=== PATIENT | female | born 1950 | race African-American/Black ===

== ENCOUNTER 2023-11-18 13:37 | Emergency (ER) | payer MEDICARE, MEDICAID ==
[~2023-11-18] VITALS: Ht 170.2 cm; Wt 150.0 kg
[2023-11-18 13:42] VITALS: O2SAT 98
[2023-11-18 14:35] LABS: BASOPHILS % 0.8 % (0.0-2.0); EOSINOPHILS % 1.1 % (0.0-5.0); HEMATOCRIT. 42.2 % (36.0-48.0); HEMOGLOBIN. 13.8 g/dL (12.0-16.0); LYMPHOCYTES % 19.8 % (20.0-50.0); MEAN CORPUSCULAR HEMOGLOBIN 29.7 pg (28.0-32.0); MEAN CORPUSCULAR HGB CONC 32.6 g/dL (31.0-37.0); MEAN CORPUSCULAR VOLUME 91.2 fL (81.0-99.0); MONOCYTES % 8.2 % (2.0-8.0); NEUTROPHILS % 70.1 % (40.0-76.0); PLATELET 276 x1000/uL (130-400); RED BLOOD CELL COUNT 4.63 mill/uL (4.2-5.4); RED CELL DISTRIBUTION WIDTH 14.1 % (11.6-14.6); WHITE BLOOD COUNT 10.2 x1000/uL (4.5-11.0)
[2023-11-18 14:41] LABS: CHLORIDE 103 mEq/L (98-107); SODIUM 136 mEq/L (136-145)
[2023-11-18 14:42] LABS: CALCIUM 9.4 mg/dL (8.7-10.4); CARBON DIOXIDE 28 mEq/L (21-32)
[2023-11-18 14:47] LABS: CREATININE 0.7 mg/dL (0.6-1.0); GLUCOSE 153 mg/dL (70-105); UREA NITROGEN BLOOD 11 mg/dL (9-23)
[2023-11-18 14:49] LABS: ALANINE AMINOTRANSFERASE 9 IU/L (10-49); ALBUMIN 4.8 g/dL (3.2-4.8); ASPARTATE AMINOTRANSFERASE 16 IU/L (<34); BILIRUBIN TOTAL 0.4 mg/dL (0.1-1.0); PROTEIN TOTAL 8.4 g/dL (6.0-8.3)
[2023-11-18 16:03] VITALS: TEMP 99.3
[2023-11-18 16:21] VITALS: BP 142/78; PULSE 72; RESP 16
[2023-11-18] MEDS: KETOROLAC 60MG/2ML VIAL IM ONE (16:21)
== END 2023-11-18 16:32 | disposition home or self-care (01) ==
LOC: ER 15:45
DX: M79.89 Other specified soft tissue disorders (principal); G89.29 Other chronic pain; M54.9 Dorsalgia, unspecified; E11.9 Type 2 diabetes mellitus without complications; I10 Essential (primary) hypertension
CPT/HCPCS: 99285; 93971; 80053; 85025; 85379; 36415; 96372; J1885

== ENCOUNTER 2025-05-06 10:31 | Inpatient (IN) | payer MEDICARE, MEDICAID ==
[~2025-05-06] VITALS: Ht 175.3 cm; Wt 128.1 kg
[2025-05-06] MEDS: IPRATROPIUM/ALBUTEROL 0.5-3(2.5)MG/3ML NEB HHN SCH (02:45)
[~2025-05-06 10:31] MED LIST: CARB15DR EACHEYE; GABA-1180 PO; HYDR-4005 PO
[2025-05-06 11:20] VITALS: PULSE 80; RESP 20
[2025-05-06] MEDS: IPRATROPIUM BROMIDE (0.02%) 0.5MG/2.5ML NEB HHN SCH (11:20)
[2025-05-06] MEDS: ALBUTEROL (0.083%) 2.5MG/3ML NEB HHN SCH (11:20)
[2025-05-06 11:40] VITALS: PULSE 81; RESP 20
[2025-05-06 11:41] LABS: BASOPHILS % 0.5 % (0.0-2.0); EOSINOPHILS % 0.5 % (0.0-5.0); HEMATOCRIT. 32.2 % (36.0-48.0); HEMOGLOBIN. 10.3 g/dL (12.0-16.0); LYMPHOCYTES % 13.8 % (20.0-50.0); MEAN PLATELET VOLUME 11.0 fl (7.4-10.4); MONOCYTES % 12.1 % (2.0-8.0); NEUTROPHILS % 73.1 % (40.0-76.0); PLATELET 258 x1000/uL (130-400); RED BLOOD CELL COUNT 3.56 mill/uL (4.2-5.4); RED CELL DISTRIBUTION WIDTH 14.7 % (11.6-14.6)
[2025-05-06 11:50] VITALS: PULSE 83; RESP 20
[2025-05-06 11:59] LABS: CREATININE 0.7 mg/dL (0.6-1.0); UREA NITROGEN BLOOD 7 mg/dL (9-23)
[2025-05-06 12:03] LABS: TROPONIN I HIGH SENSITIVITY 566 ng/L (3.0-34)
[2025-05-06] MEDS: METHYLPREDNISOLONE SOD SUCC 125MG/2ML (ACT-O-VIAL) IV ONE (12:10)
[2025-05-06] MEDS: CEFTRIAXONE 1GM/50ML 50 ML IV SCH (12:26)
[2025-05-06] MEDS: AZITHROMYCIN 500MG/250ML 250 ML IV SCH (13:13)
[2025-05-06] MEDS: FUROSEMIDE 40MG/4ML VIAL IVP SCH (13:45)
[2025-05-06] MEDS ORDERED: IPRATROPIUM/ALBUTEROL 0.5-3(2.5)MG/3ML NEB HHN PRN (13:45)
[2025-05-06] MEDS ORDERED: ONDANSETRON HCL 4MG/2ML INJ IV PRN (13:45)
[2025-05-06] MEDS ORDERED: ACETAMINOPHEN 325MG TABLET PO PRN ×2 (13:45)
[2025-05-06] MEDS ORDERED: GUAIFENESIN 200MG/10ML SUGAR FREE UDC PO PRN (13:45)
[2025-05-06 15:39] LABS: INR 1.1
[2025-05-06] MEDS ORDERED: DEXTROSE 50% WATER 50ML SYRINGE IV PRN (16:45)
[2025-05-06 17:19] VITALS: BP 156/75; PULSE 91; RESP 20; TEMP 36.418
[2025-05-06] MEDS: BLOOD SUGAR DIAGNOSTIC STRIP TEST SCH (17:40)
[2025-05-06] MEDS ORDERED: LOSA100T33 MT (18:05)
[2025-05-06] MEDS ORDERED: CARB-31 MT (18:18)
[2025-05-06] MEDS ORDERED: CARB-31 PO (18:18)
[2025-05-06] MEDS ORDERED: INSLIS SUBCUT (18:20)
[2025-05-06] MEDS: CARBIDOPA/LEVODOPA 10/100MG TABLET PO SCH (18:44)
[2025-05-06] MEDS: ASPIRIN 81MG TABLET PO SCH (18:44)
[2025-05-06] MEDS: INSULIN LISPRO 100 UNITS/ML SUBCUT SCH (18:45)
[2025-05-06] MEDS: ENOXAPARIN 120MG/0.8ML SYR SUBCUT SCH (18:49)
[2025-05-06] MEDS: HYDRALAZINE HCL 25MG TABLET PO SCH (18:50)
[2025-05-06] MEDS: PNEUMOCOCCAL 20-VAL CONJ-DIP CRM 0.5ML IM ONE (19:00)
[2025-05-06 20:00] VITALS: BP 157/71; PULSE 87; RESP 20; TEMP 36.5; O2SAT 98
[2025-05-06] MEDS: HYDROCODONE/ACETAMINOPHEN 5/325MG TABLET PO PRN (20:08)
[2025-05-06 21:43] VITALS: PULSE 88; RESP 22
[2025-05-06] MEDS: METHYLPREDNISOLONE SOD SUCC 40MG/ML (ACT-O-VIAL) IV SCH (23:17)
[2025-05-06] MEDS: CLONIDINE 0.1MG TABLET PO PRN (23:17)
[2025-05-07] VITALS (9 sets, daily range): BP systolic 121–160; BP diastolic 65–87; PULSE 69–98; RESP 18–23; TEMP 36.2–38.1; O2SAT 95–100
[2025-05-07 01:43] LABS: CREATINE KINASE MB FRACTION 1.1 ng/mL (0.5-3.6)
[2025-05-07 02:01] LABS: TROPONIN I HIGH SENSITIVITY 333.0 ng/L (3.0-34)
[2025-05-07] MEDS: DOCUSATE SODIUM 100MG CAPSULE PO PRN (05:29)
[2025-05-07] MEDS: ENOXAPARIN 120MG/0.8ML SYR SUBCUT SCH (05:39)
[2025-05-07 07:19] LABS: BASOPHILS % 0.4 % (0.0-2.0); EOSINOPHILS % 0.0 % (0.0-5.0); HEMATOCRIT. 33.1 % (36.0-48.0); HEMOGLOBIN. 10.8 g/dL (12.0-16.0); LYMPHOCYTES % 15.4 % (20.0-50.0); MEAN PLATELET VOLUME 11.1 fl (7.4-10.4); MONOCYTES % 4.1 % (2.0-8.0); NEUTROPHILS % 80.1 % (40.0-76.0); PLATELET 260 x1000/uL (130-400); RED BLOOD CELL COUNT 3.70 mill/uL (4.2-5.4); RED CELL DISTRIBUTION WIDTH 14.9 % (11.6-14.6)
[2025-05-07 07:26] LABS: ASPARTATE AMINOTRANSFERASE 14 IU/L (<34); BILIRUBIN DIRECT 0.2 mg/dL (<=3.0); BILIRUBIN TOTAL 0.5 mg/dL (0.1-1.0); CREATINE KINASE MB FRACTION 1.0 ng/mL (0.5-3.6); CREATININE 0.6 mg/dL (0.6-1.0); PROTEIN TOTAL 7.2 g/dL (6.0-8.3); UREA NITROGEN BLOOD 7 mg/dL (9-23)
[2025-05-07 07:30] LABS: T4 FREE 1.01 ng/dL (0.89-1.76)
[2025-05-07 08:12] LABS: TROPONIN I HIGH SENSITIVITY 264 ng/L (3.0-34)
[2025-05-07] MEDS: LOSARTAN 100 MG TABLET PO SCH (09:00)
[2025-05-07] MEDS: PANTOPRAZOLE SODIUM 40 MG/VIAL IV SCH (09:30)
[2025-05-07] MEDS ORDERED: CEFTRIAXONE 1GM/50ML 50 ML IV SCH (11:00)
[2025-05-07] MEDS: CEFTRIAXONE 1GM/50ML 50 ML IV SCH (11:41)
[2025-05-07] MEDS ORDERED: AZITHROMYCIN 500MG/250ML 250 ML IV SCH (12:00)
[2025-05-07] MEDS: AZITHROMYCIN 500MG/250ML 250 ML IV SCH (12:00)
[2025-05-07 12:44] LABS: FOLIC ACID (FOLATE) SERUM 13.18 ng/mL (>5.38); VITAMIN B12 SERUM 559 pg/mL (211-911)
[2025-05-07 15:49] LABS: BG BASE EXCESS 4.7 mmol/L (-2.0-3.0); BG CARBOXYHEMOGLOBIN 1.2 % (0.5-1.5); BG DEOXYHEMOGLOBIN 3.7 % (0.0-5.0); BG FLOW(L/min) 32.00 L/min; BG FRACTION INSPIRED OXYGEN 28; BG HCO3 ACT 28.4 mmol/L (21.0-28.0); BG METHEMOGLOBIN 0.0 % (0.5-1.5); BG OXYGEN SATURATION 96.3 % (94.0-98.0); BG OXYHEMOGLOBIN 95.1 % (94.0-98.0); BG PCO2 38.6 mmHg (32.0-45.0); BG PH 7.484 (7.350-7.450); BG PO2 76.7 mmHg (83.0-108.0); BG SAMPLE SITE LEFT RADIAL; BG TOTAL HEMOGLOBIN 12.1 g/dL (12.0-16.0); BG VENT MODE NASAL CANNULA
[2025-05-07] MEDS: LORAZEPAM 1MG TABLET PO PRN (18:32)
[2025-05-08] VITALS (9 sets, daily range): BP systolic 117–165; BP diastolic 58–89; PULSE 65–92; RESP 18–20; TEMP 36.5–37.3; O2SAT 94–98
[2025-05-08] MEDS ORDERED: IODIXANOL 320MG/ML 100 ML BOTTLE IV ONE (08:59)
[2025-05-08] MEDS ORDERED: LIDOCAINE HCL 1% 20ML VIAL ONE (08:59)
[2025-05-08] MEDS ORDERED: HEPARIN 1000 UNITS/ML 10ML ONE (08:59)
[2025-05-08] MEDS ORDERED: VERAPAMIL HCL 2.5 MG/1 ML 2ML VIAL IV ONE (08:59)
[2025-05-08] MEDS ORDERED: DIPHENHYDRAMINE 50MG/ML VIAL ONE (08:59)
[2025-05-08] MEDS ORDERED: EPINEPHRINE 0.1MG/ML (1:10,000) 10ML SYR ONE (09:01)
[2025-05-08] MEDS ORDERED: ATROPINE SULFATE 1MG/10ML SYR ONE (09:01)
[2025-05-08] MEDS ORDERED: FENTANYL CITRATE/PF 50MCG/ML 2ML VIAL ONE (10:55)
[2025-05-08] MEDS ORDERED: MIDAZOLAM HCL 2 MG/2 ML VIAL ONE (10:55)
[2025-05-08] MEDS ORDERED: ATROPINE SULFATE 1MG/10ML SYR IV PRN (12:30)
[2025-05-08] MEDS ORDERED: ACETAMINOPHEN 325MG TABLET PO PRN (12:30)
[2025-05-08 17:42] LABS: BASOPHILS % 0.3 % (0.0-2.0); EOSINOPHILS % 0.3 % (0.0-5.0); HEMATOCRIT. 33.6 % (36.0-48.0); HEMOGLOBIN. 10.8 g/dL (12.0-16.0); LYMPHOCYTES % 23.3 % (20.0-50.0); MEAN PLATELET VOLUME 11.1 fl (7.4-10.4); MONOCYTES % 10.5 % (2.0-8.0); NEUTROPHILS % 65.6 % (40.0-76.0); PLATELET 314 x1000/uL (130-400); RED BLOOD CELL COUNT 3.73 mill/uL (4.2-5.4); RED CELL DISTRIBUTION WIDTH 14.8 % (11.6-14.6)
[2025-05-08 18:06] LABS: CREATININE 0.6 mg/dL (0.6-1.0); UREA NITROGEN BLOOD 9 mg/dL (9-23)
[2025-05-09] VITALS (8 sets, daily range): BP systolic 105–170; BP diastolic 56–90; PULSE 76–95; RESP 17–20; TEMP 36.5–37.2; O2SAT 95–98
[2025-05-09] MEDS: POTASSIUM CHLORIDE 20MEQ TABLET SR PO NR (00:55)
[2025-05-09] MEDS: FAMOTIDINE 20MG/2ML VIAL IV SCH (08:44)
[2025-05-09] MEDS: ENOXAPARIN 40MG/0.4ML SYR SUBCUT SCH (08:44)
[2025-05-09] MEDS ORDERED: LOSA100T33 PO (11:57)
[2025-05-09] MEDS ORDERED: ASPI-1160 PO (11:57)
[2025-05-09] MEDS ORDERED: ALBU4TAB6 MT (11:57)
[2025-05-09] MEDS ORDERED: HYDR25TA78 PO (11:57)
== END 2025-05-09 16:30 | disposition home or self-care (01) | DRG 280 ==
LOC: ER 10:31 → 7WST 12:20 → EDBEDREQ 12:22 → EDBEDREQTM 12:22 → ENRESERV 14:51
PROVIDERS: ADMIT Internal Medicine; ATTEND Internal Medicine
PROC: 4A023N7 Measurement of Cardiac Sampling and Pressure, Left Heart, Percutaneous Approach (ICD-10-PCS; principal; 2025-05-08)
PROC: B211YZZ Fluoroscopy of Multiple Coronary Arteries using Other Contrast (ICD-10-PCS; 2025-05-08)
PROC: 05H533Z Insertion of Infusion Device into Right Subclavian Vein, Percutaneous Approach (ICD-10-PCS; 2025-05-08)
PROC: B546ZZA Ultrasonography of Right Subclavian Vein, Guidance (ICD-10-PCS; 2025-05-08)
DX: I11.0 Hypertensive heart disease with heart failure (principal); I50.33 Acute on chronic diastolic (congestive) heart failure; I21.4 Non-ST elevation (NSTEMI) myocardial infarction; J96.01 Acute respiratory failure with hypoxia; J18.9 Pneumonia, unspecified organism; J44.0 Chronic obstructive pulmonary disease with (acute) lower respiratory infection; Z20.822 Contact with and (suspected) exposure to COVID-19; D64.9 Anemia, unspecified; E11.65 Type 2 diabetes mellitus with hyperglycemia; G20.A1 Parkinson's disease without dyskinesia, without mention of fluctuations; F17.210 Nicotine dependence, cigarettes, uncomplicated; I25.10 Atherosclerotic heart disease of native coronary artery without angina pectoris; F02.80 Dementia in other diseases classified elsewhere, unspecified severity, without behavioral disturbance, psychotic disturbance, mood disturbance, and anxiety; E78.00 Pure hypercholesterolemia, unspecified; Z79.4 Long term (current) use of insulin; Z79.899 Other long term (current) drug therapy
CPT/HCPCS: 36415; 36573; 36600; 71045; 80048; 80076; 82270; 82375; 82553; 82607; 82728; 82746; 82805; 82962; 83036; 83540; 83550; 84439; 84443; 84484; 85025; 87426; 90732; 93005; 93458; 94070; 94640; 94664; 96374; 97162; 97166; 99285; A4606; C1725; C1769; C1887; C1893; J0456; J0461; J0696; J1200; J1308; J1644; J1650; J1815; J1938; J2003; J2250; J2470; J2919; J3010; J3490; Q9967